=== PATIENT | female | born 1950 | race Caucasian/White ===

== ENCOUNTER 2018-07-12 07:06 | Emergency (ER) | payer MEDICARE, BC ==
[2018-07-12] MEDS ORDERED: Albuterol 0.083% 2.5 MG/3 ML Neb Soln NEB ONE (07:42)
--- NOTE | 2018-07-12 07:48 | EDM.PDOC ---
ED HPI GENERAL MEDICAL PROBLEM - General Chief Complaint: ENT Problem Stated Complaint: DIZZY AND WEAK LOTS OF COUGHING Time Seen by Provider: 07/12/18 07:35 Source of Information: Reports: Patient History Limitations: Reports: No Limitations - History of Present Illness INITIAL COMMENTS - FREE TEXT/NARRATIVE: 68 yo non-smoking female presents with a frequent cough and sneezing/ congestion. No fever. Sx's progressive for a couple days. Is from [place] and vacations here often in the summer. Has pain in her chest with coughing and feels like she is wheezing, but has no hx of asthma. Used Xopenex given to her by her provider without relief. Is taking Zyrtec without relief. Onset: Gradual Onset Date: 07/09/18 Duration: Day(s):, Getting Worse Location: Reports: Face, Chest Quality: Reports: Stabbing (with coughing only) Severity: Moderate Improves with: Reports: Rest Worsens with: Reports: Other (coughing) Context: Reports: Other (has known respiratory allergies) Associated Symptoms: Reports: Chest Pain (with coughing), Cough. 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) (Xopenex and Zyrtec without benefit) Head Pain Score (Numeric/FACES): 6 - Related Data Allergies Allergy/AdvReac Type Severity Reaction Status Date / Time codeine Allergy Nausea Verified 07/12/18 07:34 prednisone Allergy Hyperactivi Verified 07/12/18 07:32 ty doxycycline AdvReac Fatigue Verified 07/12/18 07:34 Home Meds: Home Meds Aspirin 81 mg PO DAILY 07/12/18 [History] Calcitriol [Rocaltrol] 0.25 mcg PO DAILY 07/12/18 [History] Calcium Carbonate [Calcium] 600 mg PO DAILY 07/12/18 [History] Celecoxib [CeleBREX] 50 mg PO ASDIRECTED 07/12/18 [History] Cetirizine [ZyrTEC] 10 mg PO DAILY 07/12/18 [History] Fluticasone Propionate [Flonase] 2 ampule NASBOTH ASDIRECTED 07/12/18 [History] Glucosamine HCl [Vegetarian Glucosamine] 750 mg PO DAILY 07/12/18 [History] Ibuprofen [Advil] 200 - 600 mg PO ASDIRECTED 07/12/18 [History] Levalbuterol Tartrate [Xopenex HFA] 1 puff INH ASDIRECTED PRN 07/12/18 [History] Methylsulfonylmethane [MSM] 1,500 mg PO DAILY 07/12/18 [History] Multivitamin [Multivitamins] 1 tab PO DAILY 07/12/18 [History] Omeprazole Magnesium [Prilosec Otc] 20 mg PO DAILY 07/12/18 [History] Past Medical History HEENT History: Reports: Allergic Rhinitis Cardiovascular History: Reports: Hypertension Respiratory History: Reports: SOB 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: Endocrine/Metabolic History: Reports: Hypoparathyroidism - Infectious Disease History Infectious Disease History: Reports: Chicken Pox, Measles, Mumps - Past Surgical History HEENT Surgical History: Reports: Tonsillectomy GI Surgical History: Reports: Appendectomy, Cholecystectomy Female Surgical History: Reports: Hysterectomy Musculoskeletal Surgical History: Reports: Arthroscopic Knee Social & Family History - Tobacco Use Smoking Status *Q: Never Smoker - Caffeine Use Caffeine Use: Reports: Coffee, Soda - Recreational Drug Use Recreational Drug Use: No ED ROS ENT - Review of Systems Review Of Systems: See Below Constitutional: Reports: Fatigue HEENT: Reports: Rhinitis Respiratory: Reports: Wheezing (mild subjective wheezing), Cough (frequent), Sputum (occasional). Denies: Pleuritic Chest Pain, Hemoptysis Endocrine: Reports: No Symptoms GI/Abdominal: Reports: No Symptoms : Reports: No Symptoms Musculoskeletal: Reports: No Symptoms Skin: Reports: No Symptoms Neurological: Reports: No Symptoms ED EXAM, ENT - Physical Exam Exam: See Below Exam Limited By: No Limitations General Appearance: Alert, WD/WN, No Apparent Distress Eye Exam: Bilateral Eye: Normal Inspection Ears: Normal External Exam, Normal Canal, Hearing Grossly Normal, Normal TMs Nose: Clear Rhinorrhea Mouth/Throat: Normal Inspection, Normal Gums, Normal Lips, Normal Oropharynx Head: Atraumatic, Normocephalic Neck: Normal Inspection Respiratory/Chest: No Respiratory Distress, Lungs Clear, Normal Breath Sounds, Other (frequent cough). No: Respiratory Distress, Decreased Breath Sounds, Crackles, Rales, Rhonchi, Wheezing Cardiovascular: Regular Rate, Rhythm, No Edema Extremities: Normal Inspection, Normal Range of Motion, No Pedal Edema Neurological: Alert, Oriented, CN II-XII Intact, Normal Cognition, No Motor/ Sensory Deficits Psychiatric: Normal Affect, Normal Mood Skin: Warm, Dry, Intact, Normal Color, No Rash Lymphatic: No Adenopathy Course - Vital Signs Text/Narrative:: Minimal change after albuterol neb Last Recorded V/S: Last Vital Signs Temp 37.3 C 07/12/18 07:31 Pulse 89 07/12/18 08:12 Resp 16 07/12/18 07:31 BP 121/66 07/12/18 07:31 Pulse Ox 95 07/12/18 08:12 Orthostatic Blood Pressure [ 155/77 Standing] Orthostatic Blood Pressure [ 171/78 Sitting] Orthostatic Blood Pressure [ 162/81 Supine] - Orders/Labs/Meds Orders: Active Orders 24 hr Category Date Time Status Orthostatic Vital Signs [RC] ASDIRECTED Care 07/12/18 07:36 Active RT Aerosol Therapy [RC] ASDIRECTED Care 07/12/18 07:42 Active RT Peak Flow Measurement [RC] ASDIRECTED Care 07/12/18 07:42 Active Chest 2V [CR] Stat Exams 07/12/18 08:11 Taken Labs: Laboratory Tests 07/12/18 Range/Units 07:42 WBC 15.3 H (4.5-11.0) K/uL RBC 4.71 (3.30-5.50) M/uL Hgb 11.9 L (12.0-15.0) g/dL Hct 37.3 (36.0-48.0) % MCV 79 L (80-98) fL MCH 25 L (27-31) pg MCHC 32 (32-36) % Plt Count 302 (150-400) K/uL Meds: Medications Discontinued Medications Generic Name Dose Route Start Last Admin Trade Name Freq PRN Reason Stop Dose Admin Albuterol 2.5 mg 07/12/18 07:42 07/12/18 08:11 Proventil Neb Soln NEB 07/12/18 07:43 2.5 mg ONETIME ONE Administration - Radiology Interpretation Free Text/Narrative:: CXR-neg Departure - Departure Time of Disposition: 08:41 Disposition: Home, Self-Care 01 Condition: Good Clinical Impression: Bronchitis Allergic rhinitis Qualifiers: Allergic rhinitis trigger: unspecified Allergic rhinitis seasonality: unspecified Qualified Code(s): J30.9 - Allergic rhinitis, unspecified - Discharge Information *PRESCRIPTION DRUG MONITORING PROGRAM REVIEWED*: Not Applicable *COPY OF PRESCRIPTION DRUG MONITORING REPORT IN PATIENT ANDREA: Not Applicable Instructions: Allergies, Adult, [id number] Referrals: PCP,None [Primary Care Provider] - Forms: ED Department Discharge Additional Instructions: Continue the cetirizine 10 mg daily. Add Robitussin DM or Delsym for cough symptoms. Take Amoxicillin 875 mg every 12 hrs for 7 days. Take hydrocortisone as directed. Recheck if worse or not improving. - My Orders Last 24 Hours: My Active Orders 07/12/18 07:36 Orthostatic Vital Signs [RC] ASDIRECTED 07/12/18 07:42 RT Aerosol Therapy [RC] ASDIRECTED RT Peak Flow Measurement [RC] ASDIRECTED 07/12/18 08:11 Chest 2V [CR] Stat - Assessment/Plan Last 24 Hours: My Active Orders 07/12/18 07:36 Orthostatic Vital Signs [RC] ASDIRECTED 07/12/18 07:42 RT Aerosol Therapy [RC] ASDIRECTED RT Peak Flow Measurement [RC] ASDIRECTED 07/12/18 08:11 Chest 2V [CR] Stat
--- NOTE | 2018-07-12 09:10 | CR ---
CHEST: 2 view CLINICAL HISTORY:Leukocytosis, cough COMPARISON:None FINDINGS: Heart size and pulmonary vascularity are normal. Lung chauhan are clear.. IMPRESSION: No acute cardiopulmonary process
== END 2018-07-12 09:04 | disposition home or self-care (01) ==
LOC: JP.ED 07:06
DX: J40 Bronchitis, not specified as acute or chronic (principal); J30.9 Allergic rhinitis, unspecified; I10 Essential (primary) hypertension; E20.9 Hypoparathyroidism, unspecified; Z79.82 Long term (current) use of aspirin; Z79.899 Other long term (current) drug therapy; Z88.5 Allergy status to narcotic agent; Z88.1 Allergy status to other antibiotic agents; Z88.8 Allergy status to other drugs, medicaments and biological substances
CPT/HCPCS: 36415; 71046; 71046-26; 85027; 94640; 99284-25

== ENCOUNTER 2018-07-16 13:27 | Emergency (ER) | payer MEDICARE, BC ==
[2018-07-16] MEDS ORDERED: Albuterol/Ipratropium 3.0-0.5 MG/3 ML Neb Soln NEB ONE (15:09)
--- NOTE | 2018-07-16 15:14 | EDM.PDOC ---
ED HPI GENERAL MEDICAL PROBLEM - General Chief Complaint: Respiratory Problem Stated Complaint: NEEDS AN EVAL Time Seen by Provider: 07/16/18 14:24 Source of Information: Reports: Patient, Old Records, RN History Limitations: Reports: No Limitations - History of Present Illness INITIAL COMMENTS - FREE TEXT/NARRATIVE: 68 yo female from [facility] returns to the ER after last being seen here this past . She was tx'd with hydrocortisone, Robitussin DM, cetirizine, and Amoxicllin. She developed blisters on her lower lip and concluded it was from the amox so stopped it. Says she is feeling more wheezy now. Has a Xopenex MDI that gives her about 30 min of relief after use. No fever. No purulent sputum or nasal discharge. 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) - Related Data Allergies Allergy/AdvReac Type Severity Reaction Status Date / Time codeine Allergy Nausea Verified 07/16/18 14:26 prednisone Allergy Hyperactivi Verified 07/16/18 14:26 ty doxycycline AdvReac Fatigue Verified 07/16/18 14:26 Home Meds: Home Meds Amoxicillin 875 mg PO BID #14 tab 07/12/18 [Rx] Aspirin 81 mg PO DAILY 07/12/18 [History] Calcitriol [Rocaltrol] 0.25 mcg PO DAILY 07/12/18 [History] Calcium Carbonate [Calcium] 600 mg PO DAILY 07/12/18 [History] Celecoxib [CeleBREX] 50 mg PO ASDIRECTED 07/12/18 [History] Cetirizine [ZyrTEC] 10 mg PO DAILY 07/12/18 [History] Fluticasone Propionate [Flonase] 2 ampule NASBOTH ASDIRECTED 07/12/18 [History] Glucosamine HCl [Vegetarian Glucosamine] 750 mg PO DAILY 07/12/18 [History] Hydrocortisone [Cortef] 20 mg PO BID #10 tablet 07/12/18 [Rx] Ibuprofen [Advil] 200 - 600 mg PO ASDIRECTED 07/12/18 [History] Levalbuterol Tartrate [Xopenex HFA] 1 puff INH ASDIRECTED PRN 07/12/18 [History] Methylsulfonylmethane [MSM] 1,500 mg PO DAILY 07/12/18 [History] Multivitamin [Multivitamins] 1 tab PO DAILY 07/12/18 [History] Omeprazole Magnesium [Prilosec Otc] 20 mg PO DAILY 07/12/18 [History] Azithromycin [Zithromax] 250 mg PO DAILY #6 tab 07/16/18 [Rx] Hydrocortisone [Cortef] 40 mg PO BID #24 tablet 07/16/18 [Rx] Past Medical History HEENT History: Reports: Allergic Rhinitis Cardiovascular History: Reports: Hypertension 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 History: 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: Endocrine/Metabolic History: Reports: Hypoparathyroidism - Infectious Disease History Infectious Disease History: Reports: Chicken Pox, Measles, Mumps - Past Surgical History HEENT Surgical History: Reports: Tonsillectomy GI Surgical History: Reports: Appendectomy, Cholecystectomy Female Surgical History: Reports: Hysterectomy Musculoskeletal Surgical History: Reports: Arthroscopic Knee Social & Family History - Tobacco Use Smoking Status *Q: Never Smoker - Caffeine Use Caffeine Use: Reports: Coffee, Soda - Recreational Drug Use Recreational Drug Use: No ED ROS GENERAL - Review of Systems Review Of Systems: See Below Constitutional: Reports: No Symptoms HEENT: Reports: Rhinitis Respiratory: Reports: Shortness of Breath, Wheezing, Cough. Denies: Pleuritic Chest Pain, Sputum, Hemoptysis Cardiovascular: Reports: No Symptoms GI/Abdominal: Reports: No Symptoms : Reports: No Symptoms Musculoskeletal: Reports: No Symptoms Skin: Reports: No Symptoms Neurological: Reports: No Symptoms Psychiatric: Reports: No Symptoms ED EXAM, GENERAL - Physical Exam Exam: See Below Exam Limited By: No Limitations General Appearance: Alert, WD/WN, No Apparent Distress Eye Exam: Bilateral Eye: Normal Inspection Ears: Normal External Exam, Normal Canal, Hearing Grossly Normal Ear Exam: Bilateral Ear: Auricle Normal, Canal Normal Nose: Normal Inspection, Normal Mucosa, No Blood Throat/Mouth: Normal Inspection, Normal Lips, Normal Oropharynx, Normal Voice, No Airway Compromise Head: Atraumatic, Normocephalic Neck: Normal Inspection Respiratory/Chest: No Respiratory Distress, Wheezing. No: Rales, Rhonchi, Stridor, Retractions Cardiovascular: Regular Rate, Rhythm, No Edema Back Exam: Normal Inspection Extremities: Normal Inspection, Normal Range of Motion, Non-Tender, No Pedal Edema Neurological: Alert, Oriented, CN II-XII Intact, Normal Cognition, No Motor/ Sensory Deficits Psychiatric: Normal Affect, Normal Mood Skin Exam: Warm, Dry, Intact, Normal Color, No Rash Lymphatic: No Adenopathy Course - Vital Signs Last Recorded V/S: Last Vital Signs Temp 36.3 C 07/16/18 14:25 Pulse 75 07/16/18 14:25 Resp 16 07/16/18 14:25 BP 184/93 H 07/16/18 14:25 Pulse Ox 93 L 07/16/18 14:25 - Orders/Labs/Meds Orders: Active Orders 24 hr Category Date Time Status RT Aerosol Therapy [RC] ASDIRECTED Care 07/16/18 15:09 Active Meds: Medications Discontinued Medications Generic Name Dose Route Start Last Admin Trade Name Freq PRN Reason Stop Dose Admin Albuterol/Ipratropium 3 ml 07/16/18 15:09 07/16/18 15:43 Duoneb 3.0-0.5 Mg/3 Ml NEB 07/16/18 15:10 3 ml ONETIME ONE Administration Departure - Departure Time of Disposition: 16:00 Disposition: Home, Self-Care 01 Condition: Fair Clinical Impression: Bronchospasm - Discharge Information *PRESCRIPTION DRUG MONITORING PROGRAM REVIEWED*: Not Applicable *COPY OF PRESCRIPTION DRUG MONITORING REPORT IN PATIENT ANDREA: Not Applicable Prescriptions: Azithromycin [Zithromax] 250 mg PO DAILY #6 tab Hydrocortisone [Cortef] 40 mg PO BID #24 tablet Instructions: Bronchospasm, Adult, [id number] Referrals: PCP,None [Primary Care Provider] - Forms: ED Department Discharge Additional Instructions: Double the dose of your hydrocortisone to 40 mg every 12 hrs. Substitute Azithromycin for amoxicillin. Continue your other treatments. Recheck when you get home. Return here as needed. - My Orders Last 24 Hours: My Active Orders 07/16/18 15:09 RT Aerosol Therapy [RC] ASDIRECTED - Assessment/Plan Last 24 Hours: My Active Orders 07/16/18 15:09 RT Aerosol Therapy [RC] ASDIRECTED
== END 2018-07-16 16:30 | disposition home or self-care (01) ==
LOC: JP.ED 13:27
DX: J98.01 Acute bronchospasm (principal); I10 Essential (primary) hypertension; E20.9 Hypoparathyroidism, unspecified; Z79.82 Long term (current) use of aspirin; Z79.899 Other long term (current) drug therapy; Z88.5 Allergy status to narcotic agent; Z88.8 Allergy status to other drugs, medicaments and biological substances
CPT/HCPCS: 94640; 99285-25; J7620-GY